=== PATIENT | female | born 1990 | race Caucasian/White ===

== ENCOUNTER 2018-03-03 13:13 | Emergency (ER) | payer OTHER ==
[~2018-03-03] VITALS: Ht 154.9 cm; Wt 72.7 kg
[2018-03-03] MEDS ORDERED: KETOROLAC TROMETHAMINE 10 MG TABLET PO ONE (14:30)
[2018-03-03] MEDS ORDERED: METHOCARBAMOL 500 MG TABLET PO ONE (14:30)
[2018-03-03 14:54] VITALS: BP 127/73
== END 2018-03-03 14:55 | disposition home or self-care (01) ==
LOC: EMS 13:17
DX: S13.4XXA Sprain of ligaments of cervical spine, initial encounter (principal); S33.5XXA Sprain of ligaments of lumbar spine, initial encounter; F12.90 Cannabis use, unspecified, uncomplicated; V42.6XXA Car passenger injured in collision with two- or three-wheeled motor vehicle in traffic accident, initial encounter; Y93.89 Activity, other specified; Y92.89 Other specified places as the place of occurrence of the external cause; Y99.8 Other external cause status
CPT/HCPCS: 99283